=== PATIENT | female | born 2000 | race Caucasian/White ===

== ENCOUNTER → 2019-04-12 | Outpatient (CLI) | payer OTHER | LOC: COL.RAD 08:24 | DX: M84.362A Stress fracture, left tibia, initial encounter for fracture (principal); M84.361A Stress fracture, right tibia, initial encounter for fracture | CPT/HCPCS: A9503 ==

== ENCOUNTER → 2019-08-10 | Outpatient (CLI) | payer OTHER | LOC: COL.RAD 10:08 | DX: M79.605 Pain in left leg (principal); M79.604 Pain in right leg | CPT/HCPCS: A9503 ==